=== PATIENT | male | born 1995 | race African-American/Black ===

== ENCOUNTER 2023-12-26 01:38 | Emergency (ER) | payer MEDICAID, SELFPAY ==
[2023-12-26 01:41] VITALS: BP 136/67; PULSE 96; RESP 15; TEMP 36.8; O2SAT 100
--- NOTE | 2023-12-26 05:48 | PC.NURSE ---
Addendum entered by Phuong Ruth RN 12/26/23 05:52: Denies any sob or difficulty swallowing at this time. Original Note: Pt back to room. States he c/o a lump in his throat. Reports being seen for this in the past and told he has acid reflux. States that his throat is feeling better and no longer wants to stay to be seen. Risks and benefits discussed. Pt ambulatory to waiting room with steady gait.
== END 2023-12-26 05:48 | disposition left against medical advice (07) ==
DX: R13.10 Dysphagia, unspecified (principal)
CPT/HCPCS: 99199

== ENCOUNTER 2023-12-26 13:47 | Emergency (ER) | payer MEDICAID, SELFPAY ==
[2023-12-26 14:03] VITALS: BP 127/60; PULSE 60; RESP 16; TEMP 36.6; O2SAT 100
[2023-12-26 17:53] VITALS: BP 145/88; PULSE 78; RESP 18; O2SAT 100
--- NOTE | 2023-12-26 17:56 | ED.GENADULT ---
HPI - General Adult General Chief complaint: Unspecified Stated complaint: SORE THROAT Time Seen by Provider: 12/26/23 17:50 History of Present Illness HPI narrative: 28-year-old male reports for evaluation for a burning sensation in his throat for over a year. Patient states this sensation hurts worse when he eats certain foods like pizza, tomatoes, citrus a foods and spicy foods. States he was evaluated approximately 1 year ago and was told he had acid reflux and was prescribed medication. States he took it for a while and it helped, however never followed up. He denies sore throat, fever, nausea or vomiting, abdominal pain, Melena or hematochezia. Related Data Allergies Allergy/AdvReac Type Severity Reaction Status Date / Time No Known Allergies Allergy Verified 12/26/23 01:45 Review of Systems Review of Systems: CONSTITUTIONAL: Denies fever, chills, or sweats. EYES: Denies visual changes, redness, or discharge. ENT: See HPI CARDIOVASCULAR: Denies chest pain, palpitations, or edema. RESPIRATORY: Denies cough or dyspnea. GASTROINTESTINAL: see HPI GENITOURINARY: Denies dysuria or hematuria. SKIN: Denies rash or itching. MUSCULOSKELETAL: Denies back pain, joint pain, or myalgia. NEUROLOGIC: Denies headache, numbness, or weakness. PSYCHIATRIC: Denies anxiety or depression. Exam Narrative: GENERAL: Well-appearing, well-nourished, and in no acute distress. HEAD: Normocephalic, atraumatic. EYES: PERRLA and EOMI. ENT: Nares clear, no rhinorrhea or epistaxis. Mucous membranes moist. bilateral TMs are [place] nonbulging. Posterior pharynx without erythema, edema. No uvular edema. Uvula is hypertrophy. No tonsillar hypertrophy or exudates. NECK: Supple. CHEST: Clear to auscultation. No respiratory distress. HEART: Regular rate and rhythm. No murmur heard. Normal peripheral pulses. ABDOMEN: Soft, nontender, nondistended, normal active bowel sounds. EXTREMITIES: Normal range of motion. No edema. SKIN: Warm, dry, no rash. NEURO: No focal deficits. Alert and oriented x3 Course Vital Signs Vital signs: Vital Signs Temperature 97.9 F 12/26/23 14:03 Pulse Rate 60 12/26/23 14:03 Respiratory Rate 16 12/26/23 14:03 Blood Pressure 127/60 12/26/23 14:03 Pulse Oximetry 100 12/26/23 14:03 Temperature 97.9 F 12/26/23 14:03 Pulse Rate 78 12/26/23 17:53 Respiratory Rate 18 12/26/23 17:53 Blood Pressure 145/88 H 12/26/23 17:53 Pulse Oximetry 100 12/26/23 17:53 Medical Decision Making MDM Narrative Medical decision making narrative: 28-year-old male reports for evaluation for a burning sensation is throat after eating acidic foods. See HPI for further history. Vitals are stable. Patient is afebrile and well appearing on exam. Nontoxic appearing. Pharynx is unremarkable. Abdomen is soft and nontender. Symptoms consistent with GERD. Patient received Pepcid and GI cocktail with improvement. Will discharge him home with Pepcid and encourage close PCP follow-up. Strict ED return precautions and dietary restrictions were discussed. He is agreeable to plan verbalized understanding. Discharged in stable condition. Vital Signs Vital Signs: Vital Signs Temperature 97.9 F 12/26/23 14:03 Pulse Rate 60 12/26/23 14:03 Respiratory Rate 16 12/26/23 14:03 Blood Pressure 127/60 12/26/23 14:03 Pulse Oximetry 100 12/26/23 14:03 Temperature 97.9 F 12/26/23 14:03 Pulse Rate 78 12/26/23 17:53 Respiratory Rate 18 12/26/23 17:53 Blood Pressure 145/88 H 12/26/23 17:53 Pulse Oximetry 100 12/26/23 17:53 Discharge Plan Discharge Clinical Impression: Acid reflux Qualifiers: Esophagitis presence: esophagitis presence not specified Qualified Code(s): K21.9 - Gastro-esophageal reflux disease without esophagitis Patient Disposition: Home, Self-Care Condition: Stable Instructions: Antibiotic Form, GERD (Gastroesophageal Reflux Disease) (DC)
[2023-12-26] MEDS: BELLADONNA ALK/PHENOB ELIX 10 ML, MAG HYDROX/ALUMINUM HYD/SIMETH 30 ML, LIDOCAINE HCL 2... PO (18:06)
[2023-12-26] MEDS: FAMOTIDINE 20 MG TABLET PO (18:10)
--- NOTE | 2023-12-26 19:36 | PC.NURSE ---
this rn assumed care of patient. this rn took patient report from echo raya.
[2023-12-26 19:48] VITALS: BP 122/76; PULSE 64; RESP 18; O2SAT 100
== END 2023-12-26 19:52 | disposition home or self-care (01) ==
PROVIDERS: Emergency Provider Physician Assistant
DX: K21.9 Gastro-esophageal reflux disease without esophagitis (principal)
CPT/HCPCS: 99283; A9270

== ENCOUNTER 2024-02-11 19:02 | Emergency (ER) | payer MEDICAID, SELFPAY ==
[2024-02-11 19:12] VITALS: BP 126/70; PULSE 60; RESP 15; TEMP 36.6; O2SAT 100
--- NOTE | 2024-02-11 19:47 | ED.GENADULT ---
HPI - General Adult General Chief complaint: Unspecified Stated complaint: ST Time Seen by Provider: 02/11/24 19:22 History of Present Illness HPI narrative: 28-year-old male presenting emergency department for evaluation sore throat. Patient does have history of gastric reflux but does not take anything for it at this time. Patient did have recent follow-up with his primary care physician and did make some dietary changes and states that his urine has been better controlled. Patient was brushing his teeth today when the mid toothpaste bothered his throat. Related Data Allergies Allergy/AdvReac Type Severity Reaction Status Date / Time No Known Allergies Allergy Verified 02/11/24 19:16 Review of Systems Review of Systems: All systems reviewed & are unremarkable except as noted in HPI and below Exam Narrative: APPEARANCE: Well appearing, no pain, no distress, well-nourished. HEAD: normocephalic, atraumatic. EYES: PERRLA/EOMI, conjunctivae clear. NOSE: Normal no drainage EARS:TMS clear with good light reflex. THROAT: Pharynx clear, no exudate. NECK: Supple. No adenopathy, no masses. RESPIRATORY: Airway patent, respirations nonlabored. Clear to auscultation bilaterally, no rales, rhonchi, wheezing. CARDIOVASCULAR: Regular rate and rhythm without murmurs rubs or gallops. ABDOMINAL: Soft, nontender, nondistended, normal bowel sounds MUSCULOSKELETAL: Moves all extremities. Strength/ROM intact, No edema, No calf tenderness. NEURO: Alert. Cranial nerves II through XII intact. Grossly SKIN: Warm, dry. Normal Color Course Course Emergency Course: Patient was discharged home with instructions for outpatient follow-up Vital Signs Vital signs: Vital Signs Temperature 97.8 F 02/11/24 19:12 Pulse Rate 60 02/11/24 19:12 Respiratory Rate 15 02/11/24 19:12 Blood Pressure 126/70 02/11/24 19:12 Pulse Oximetry 100 02/11/24 19:12 Oxygen Delivery Room Air 02/11/24 19:12 Temperature 97.8 F 02/11/24 19:12 Pulse Rate 60 02/11/24 19:12 Respiratory Rate 15 02/11/24 19:12 Blood Pressure 126/70 02/11/24 19:12 Pulse Oximetry 100 02/11/24 19:12 Oxygen Delivery Room Air 02/11/24 19:12 Medical Decision Making MDM Narrative Medical decision making narrative: 28-year-old male presenting to the emergency department for sore throat. No evidence of strep throat or peritonsillar abscess. Patient does have mild posterior pharynx erythema with no evidence of infection. Patient all be started on omeprazole and patient was instructed to use Maalox as needed. Vital Signs Vital Signs: Vital Signs Temperature 97.8 F 02/11/24 19:12 Pulse Rate 60 02/11/24 19:12 Respiratory Rate 15 02/11/24 19:12 Blood Pressure 126/70 02/11/24 19:12 Pulse Oximetry 100 02/11/24 19:12 Oxygen Delivery Room Air 02/11/24 19:12 Temperature 97.8 F 02/11/24 19:12 Pulse Rate 60 02/11/24 19:12 Respiratory Rate 15 02/11/24 19:12 Blood Pressure 126/70 02/11/24 19:12 Pulse Oximetry 100 02/11/24 19:12 Oxygen Delivery Room Air 02/11/24 19:12 Discharge Plan Discharge Clinical Impression: GERD with esophagitis Patient Disposition: Home, Self-Care Condition: Stable Instructions: Antibiotic Form, Gastritis (DC), Diet for Stomach Ulcers and Gastritis (ED) Additional Instructions: Follow a bland diet. Prilosec as directed for the next 14 days. Maalox as needed for intermittent esophageal pain. Have close follow-up with your primary care physician and with GI. If you have any worsening symptoms please call or return to the emergency department Prescriptions: New omeprazole 20 mg capsule,delayed release(DR/EC) 20 mg PO DAILY 14 Days Qty: 14 0RF No Action famotidine 20 mg tablet 20 mg PO DAILY Qty: 30 0RF Follow-up/Referrals: PHYSICIAN,[employer] [Primary Care Provider] - Joshua Villagomez MD [Physician] -
== END 2024-02-11 20:05 | disposition home or self-care (01) ==
PROVIDERS: Emergency Provider Emergency Medicine
DX: K21.9 Gastro-esophageal reflux disease without esophagitis (principal); K21.00 Gastro-esophageal reflux disease with esophagitis, without bleeding
CPT/HCPCS: 99283